=== PATIENT | female | born 1975 ===

== ENCOUNTER 2016-09-19 16:59 | Inpatient (IN) | payer OTHER ==
[2016-09-19] MEDS ORDERED: Sodium Chloride 0.9% 1,000 ML IV ONE (17:57)
[2016-09-19 18:12] LABS: BASO % 0.4 % (0.0-2.0); EOS # 0.1 K/uL (0.0-0.7); EOS % 0.7 % (0.0-4.0); HEMATOCRIT 42.7 % (34.0-47.0); LYMPH # 1.7 K/uL (1.0-4.3); LYMPH % 17.2 % (20.0-40.0); MEAN CELL VOLUME 91.8 fL (81.0-99.0); MEAN CORPUSCULAR HEMOGLOBIN 30.4 pg (27.0-31.0); MEAN CORPUSCULAR HGB CONC 33.1 g/dL (33.0-37.0); MEAN PLATELET VOLUME 8.4 fL (7.2-11.7); MONO # 0.8 K/uL (0.0-0.8); MONO % 8.3 % (0.0-10.0); NRBC % 0.1 % (0.0-2.0); RED CELL DISTRIBUTION WIDTH 12.5 % (11.5-14.5); WHITE BLOOD COUNT 9.7 K/uL (4.8-10.8)
[2016-09-19 18:15] LABS: CHLORIDE 99 mmol/L (98-107); POTASSIUM 3.9 mmol/L (3.6-5.2); SODIUM 135 mmol/L (132-148)
[2016-09-19 18:17] LABS: ALB/GLOB RATIO 1.2 (1.0-2.1); ALKALINE PHOSPHATASE 71 U/L (38-126); AST/SGOT 36 U/L (14-36); BILIRUBIN,TOTAL 1.2 mg/dL (0.2-1.3); CARBON DIOXIDE 26 mmol/L (22-30); GFR AFRICAN-AMERICAN > 60; TOTAL PROTEIN 7.9 g/dL (6.3-8.3)
[2016-09-19 18:18] LABS: ALT/SGPT 48 U/L (9-52); BLOOD UREA NITROGEN 21 mg/dL (7-17); CALCIUM 9.4 mg/dl (8.6-10.4); GLUCOSE,RANDOM 93 mg/dL (65-105); MAGNESIUM 1.9 mg/dL (1.6-2.3)
[2016-09-19 18:25] LABS: INR 1.1
--- NOTE | 2016-09-19 18:28 | RAD ---
PROCEDURE: CHEST RADIOGRAPH, 1 VIEW HISTORY: SOB, [place] COMPARISON: None available. FINDINGS: LUNGS: Clear. PLEURA: No pneumothorax or pleural fluid seen. CARDIOVASCULAR: Normal. OSSEOUS STRUCTURES: No significant abnormalities. VISUALIZED UPPER ABDOMEN: Normal. OTHER FINDINGS: None. IMPRESSION: No active disease.
[2016-09-19 18:35] LABS: T4 > 24.9 ug/dL (5.5-11.0)
[2016-09-19 18:36] LABS: RBC URINE 4 /hpf (0-3); URINE BACTERIA MOD (<OCC); URINE BILIRUBIN NEGATIVE (NEGATIVE); URINE BLOOD TRACE (NEGATIVE); URINE COLOR Yellow (YELLOW); URINE GLUCOSE (UA) NORMAL (Normal); URINE KETONE NEGATIVE (NEGATIVE); URINE LEUKOCYTE ESTERASE 2+ Leu/uL (Negative); URINE PROTEIN NEGATIVE (NEGATIVE); URINE UROBILINOGEN NORMAL mg/dL (0.2-1.0); WBC URINE 15 /hpf (0-5)
[2016-09-19 18:48] LABS: THYROID STIMULATING HORMONE < 0.02 mIU/L (0.46-4.68)
[2016-09-19] MEDS ORDERED: Sodium Chloride 0.9% 1,000 ML ONE (18:48)
[2016-09-19] MEDS ORDERED: Propranolol 1 mg/mL Inj IVP STA (18:57)
[2016-09-19] MEDS ORDERED: Propranolol 1 mg/mL Inj ONE (19:33)
--- NOTE | 2016-09-19 20:30 | C.PDOC ---
Time Seen by Provider: 09/19/16 17:35 Chief Complaint (Nursing): Palpitations History Per: Patient Onset/Duration Of Symptoms: Days (3) Current Symptoms Are (Timing): Still Present Associated Symptoms: Dyspnea Quality Of Symptoms: Rapid Heart Rate Severity: Moderate Exacerbating Factor(s): Pos: None Additional History Per: Prior Records Past Medical History Reviewed: Historical Data, Nursing Documentation, Vital Signs Vital Signs: Last Vital Signs Temp 97.9 F 09/19/16 19:00 Pulse 116 H 09/19/16 20:23 Resp 22 09/19/16 20:23 BP 125/74 09/19/16 20:23 Pulse Ox 96 09/19/16 20:23 - Medical History PMH: No Chronic Diseases Surgical History: No Surg Hx Family History: States: Unknown Family Hx - Social History Hx Tobacco Use: No Hx Alcohol Use: No Hx Substance Use: No Review Of Systems Except As Marked, All Systems Reviewed And Found Negative. Constitutional: Positive for: Malaise. Negative for: Fever Cardiovascular: Positive for: Palpitations. Negative for: Chest Pain Respiratory: Positive for: Shortness of Breath. Negative for: Cough, Hemoptysis Gastrointestinal: Negative for: Vomiting, Abdominal Pain, Diarrhea Genitourinary: Negative for: Dysuria Musculoskeletal: Negative for: Neck Pain, Back Pain, Leg Pain Skin: Negative for: Rash Neurological: Negative for: Weakness, Numbness, Seizures, Altered Mental Status Physical Exam - Physical Exam Appears: Non-toxic, No Acute Distress Skin: Normal Color, Warm, Dry, No Rash Head: Atraumatic, Normacephalic Eye(s): bilateral: PERRL, EOMI Neck: Normal ROM, Supple Cardiovascular: Rhythm Regular (tachycardia) Respiratory: Normal Breath Sounds, No Accessory Muscle Use Gastrointestinal/Abdominal: Soft, No Tenderness Back: No CVA Tenderness Extremity: Normal ROM, No Calf Tenderness Neurological/Psych: Oriented x3, Normal Motor, Normal Sensation ED Course And Treatment - Laboratory Results Result Diagrams: 09/19/16 18:04 09/19/16 18:04 Lab Interpretation: Abnormal Interpretation Of Abnormal: Elevated thyroid hormone levels with low TSH level. Urine POC: Negative ECG: Interpreted By Me, Viewed By Me ECG Rhythm: Sinus Tachycardia, Nonspecific Changes ECG Interpretation: Abnormal Rate From EC O2 Sat by Pulse Oximetry: 96 Pulse Ox Interpretation: Normal - Radiology CXR: Viewed By Me, Read By Radiologist CXR Interpretation: Yes: No Acute Disease - Physician Consult Information Physician Contacted: Mauricio Pugh (ICU) Outcome Of Conversation: She states that pt can be safely admitted to telemetry floor. Progress - Interventions Interventions:: Observation, Intravenous fluid, Oxygen - Medications Administered Oral: Other (Methimazole) Intravenous: Other (Propranolol) - Data Reviewed Data Reviewed: Lab, Diagnostic imaging, EKG, Old records - Patient Status Patient status: Partially improved - Critical Care Citical Care: Excluding Proc Time Critical Care Time: 45 minutes - Continuity of Care Discussed patient case with:: Patient, Family-HIPPA compliant, ED Nurse, On- call PMD-pt unassigned Discussed pt. case with care consultant/specialty: Pulmonary/Crit. Care - Patient Plan Patient Plan: Admission, Telemetry Disposition Discussed With : Kevan Nichols Comment: He accepted pt on hospitalist service. Doctor Will See Patient In The: Hospital Counseled Patient/Family Regarding: Studies Performed, Diagnosis - Disposition Disposition: HOSPITALIZED Disposition Time: 20:33 Condition: SERIOUS - Clinical Impression Clinical Impression: Thyrotoxicosis
--- NOTE | 2016-09-19 20:44 | CP.PCM.HP ---
<Fred Galindo - Last Filed: 09/19/16 23:54> History of Present Illness - History of Present Illness History of Present Illness: CC: "SOB, fast heart beat, shaking" 41 F with no significant PMH presents to [facility] ED with complaint of SOB, fast heart beat, and shaking. Patient stated that this has intermittently has been going on for 2 weeks. Monday, while she was at work, she began to notice significant shaking in her hand when trying to write. She went home from work and tried to rest over the weekend. Her symptoms had gotten progressively worse and earlier today decided to go to an urgent care center. They instructed her to come to the ED. Patient has also had associated headache, nausea, and one episode of vomiting. She states that she has nebver experiencd these symptoms before 2 weeks ago. She simply thought these symptoms was related to stress in her life. Patient rated headache as 4/10 in severity. She described it as constant and aching located in the occipital region of her head without radiation. She tried taking Alieve but the headache persisted. She denies any exacerbating or alleviating factors. Patient reported that her mother had an isolated episode of hyperthyroidism while her Grandmother had a history of Graves' disease. Admits dizziness/lightheadedness, blurred vision, SOB, palpitations, tremors, fatigue, n/v. Denies fever/chills, cp, abd pain, diarrhea , constipation, urinary symptoms, incontinence, numbness/tingling, weakness. 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 absent: Chills, Fever, Weakness - EENT Eyes: Blurred Vision. absent: Loss of Peripheral Vision, Pain Ears: Dizziness. absent: Ear Pain Nose/Mouth/Throat: absent: Nasal Discharge, Nose Pain, Change in Voice, Sore Throat, Neck Mass - Breasts Breasts: absent: Mass, Pain, Swelling - Cardiovascular Cardiovascular: Diaphoresis, Dyspnea, Lightheadedness, Palpitations. absent: Chest Pain, Chest Pain at Rest, Chest Pain with Activity, Irregular Heart Rhythm , Syncope - Respiratory Respiratory: absent: Cough, Dyspnea, Hemoptysis - Gastrointestinal Gastrointestinal: Nausea. absent: Abdominal Pain, Diarrhea, Vomiting - Genitourinary Genitourinary: absent: Change in Urinary Stream, Difficulty Urinating, Dysuria, Urinary Incontinence - Musculoskeletal Musculoskeletal: absent: Numbness, Stiffness, Tingling - Integumentary Integumentary: absent: Lesions, New Lesions, Skin Pain, Skin Ulcer, Sores - Neurological Neurological: Dizziness, Headaches, Tremor. absent: Confusion, Numbness, Syncope, Tingling, Vertigo, Weakness - Psychiatric Psychiatric: Anxiety. absent: Depression, Homicidal Ideation, Suicidal Ideation - Endocrine Endocrine: Fatigue, Palpitations. absent: Excessive Sweating, Flushing, Heat Intolorance, Polydipsia, Polyphagia, Polyuria - Hematologic/Lymphatic Hematologic: absent: Easy Bleeding, Easy Bruising, Lymphadenopathy Past Patient History - Past Social History Smoking Status: Never Smoked - PSYCHIATRIC Hx Substance Use: No Meds Allergies/Adverse Reactions: Allergies Allergy/AdvReac Type Severity Reaction Status Date / Time No Known Allergies Allergy Unverified 09/19/16 17:26 Physical Exam - Constitutional Appears: No Acute Distress - Head Exam Head Exam: ATRAUMATIC, NORMOCEPHALIC - Eye Exam Eye Exam: EOMI, Normal appearance Pupil Exam: PERRL - ENT Exam ENT Exam: Mucous Membranes Moist - Neck Exam Neck exam: Positive for: Thyromegaly (TTP) - Respiratory Exam Respiratory Exam: Clear to Auscultation Bilateral, NORMAL BREATHING PATTERN - Cardiovascular Exam Cardiovascular Exam: Tachycardia, REGULAR RHYTHM, +S1, +S2 - GI/Abdominal Exam GI & Abdominal Exam: Normal Bowel Sounds, Soft. absent: Distended, Firm, Guarding, Rebound, Rigid, Tenderness - Extremities Exam Extremities exam: Positive for: normal capillary refill, pedal edema, pedal pulses present - Back Exam Back exam: absent: CVA tenderness (L), CVA tenderness (R) - Neurological Exam Neurological exam: Alert, CN II-XII Intact, Oriented x3 - Psychiatric Exam Psychiatric exam: Anxious - Skin Skin Exam: Dry, Intact, Normal Color, Warm Results - Vital Signs Recent Vital Signs: Last Vital Signs Temp 97.9 F 09/19/16 19:00 Pulse 116 H 09/19/16 20:23 Resp 22 09/19/16 20:23 BP 125/74 09/19/16 20:23 Pulse Ox 96 09/19/16 20:33 - Labs Result Diagrams: 09/19/16 18:04 09/19/16 18:04 Labs: Laboratory Results - last 24 hr 09/19/16 09/19/16 09/19/16 18:04 18:04 18:04 WBC 9.7 RBC 4.65 Hgb 14.1 Hct 42.7 MCV 91.8 MCH 30.4 MCHC 33.1 RDW 12.5 Plt Count 310 MPV 8.4 Neut % (Auto) 73.4 Lymph % (Auto) 17.2 L [place] % (Auto) 8.3 Eos % (Auto) 0.7 Baso % (Auto) 0.4 Neut # 7.1 H Lymph # 1.7 [place] # 0.8 Eos # 0.1 Baso # 0.0 PT 12.6 H INR 1.1 APTT 31 D-Dimer, Quantitative 270 H Sodium 135 Potassium 3.9 Chloride 99 Carbon Dioxide 26 Anion Gap 14 BUN 21 H Creatinine 0.5 L Est GFR ( Amer) > 60 Est GFR (Non-Af Amer) > 60 Random Glucose 93 Calcium 9.4 Magnesium 1.9 Total Bilirubin 1.2 AST 36 ALT 48 Alkaline Phosphatase 71 Troponin I < 0.0120 NT-Pro-B Natriuret Pep 16.8 Total Protein 7.9 Albumin 4.3 Globulin 3.6 Albumin/Globulin Ratio 1.2 Thyroxine (T4) > 24.9 H Total T3 11.0 H TSH 3rd Generation < 0.02 L Urine Color Urine Clarity Urine pH Ur Specific [place] Urine Protein Urine Glucose (UA) Urine Ketones Urine Blood Urine Nitrate Urine Bilirubin Urine Urobilinogen Ur Leukocyte Esterase Urine WBC (Auto) Urine RBC (Auto) Ur Squamous Epith Cells Urine Bacteria Urine HCG, Qual Urine Opiates Screen Urine Methadone Screen Ur Barbiturates Screen Ur Phencyclidine Scrn Ur Amphetamines Screen U Benzodiazepines Scrn U Oth Cocaine Metabols U Cannabinoids Screen 09/19/16 09/19/16 18:24 18:24 WBC RBC Hgb Hct MCV MCH MCHC RDW Plt Count MPV Neut % (Auto) Lymph % (Auto) [place] % (Auto) Eos % (Auto) Baso % (Auto) Neut # Lymph # [place] # Eos # Baso # PT INR APTT D-Dimer, Quantitative Sodium Potassium Chloride Carbon Dioxide Anion Gap BUN Creatinine Est GFR ( Amer) Est GFR (Non-Af Amer) Random Glucose Calcium Magnesium Total Bilirubin AST ALT Alkaline Phosphatase Troponin I NT-Pro-B Natriuret Pep Total Protein Albumin Globulin Albumin/Globulin Ratio Thyroxine (T4) Total T3 TSH 3rd Generation Urine Color Yellow Urine Clarity Hazy Urine pH 6.0 Ur Specific [place] 1.019 Urine Protein Negative Urine Glucose (UA) Normal Urine Ketones Negative Urine Blood Trace H Urine Nitrate Negative Urine Bilirubin Negative Urine Urobilinogen Normal Ur Leukocyte Esterase 2+ H Urine WBC (Auto) 15 H Urine RBC (Auto) 4 H Ur Squamous Epith Cells 12 H Urine Bacteria Mod H Urine HCG, Qual Negative Urine Opiates Screen Negative Urine Methadone Screen Negative Ur Barbiturates Screen Negative Ur Phencyclidine Scrn Negative Ur Amphetamines Screen Negative U Benzodiazepines Scrn Negative U Oth Cocaine Metabols Negative U Cannabinoids Screen Negative Assessment & Plan - Assessment and Plan (Free Text) Plan: 1. Hyperthyroidism telemetry Tachycardic 125 bpm T3 11.0 T4 > 24.9 TSH < 0.02 Thyroid US Thyroid Uptake Scan Thyroid HARRIS/TPO Atenolol 50 mg PO daily Methimazole 20 mg PO BID O2 2LNC PRN 2. Prophylactic Measures Lovenox 40 mg SC daily Protonix 40 mg pO daily Zofran 4 mg IVP Q6h PRN <Kevan Nichols P - Last Filed: 09/25/16 19:41> Results - Vital Signs Recent Vital Signs: Last Vital Signs Temp 98.5 F 09/21/16 23:10 Pulse 101 H 09/21/16 23:40 Resp 20 09/21/16 23:10 BP 98/60 L 09/21/16 23:10 Pulse Ox 98 09/21/16 23:10 - Labs Result Diagrams: 09/22/16 04:00 09/21/16 07:32 Attending/Attestation - Attestation I have personally seen and examined this patient.: Yes I have fully participated in the care of the patient.: Yes I have reviewed all pertinent clinical information: Yes
[2016-09-20 08:51] LABS: BASO % 0.5 % (0.0-2.0); EOS # 0.2 K/uL (0.0-0.7); EOS % 3.8 % (0.0-4.0); HEMATOCRIT 40.3 % (34.0-47.0); LYMPH # 1.7 K/uL (1.0-4.3); LYMPH % 28.8 % (20.0-40.0); MEAN CELL VOLUME 91.2 fL (81.0-99.0); MEAN CORPUSCULAR HEMOGLOBIN 30.3 pg (27.0-31.0); MEAN CORPUSCULAR HGB CONC 33.3 g/dL (33.0-37.0); MEAN PLATELET VOLUME 8.6 fL (7.2-11.7); MONO # 0.8 K/uL (0.0-0.8); MONO % 13.1 % (0.0-10.0); RED CELL DISTRIBUTION WIDTH 12.2 % (11.5-14.5); WHITE BLOOD COUNT 5.9 K/uL (4.8-10.8)
[2016-09-20 09:05] LABS: INR 1.1
[2016-09-20 09:11] LABS: CHLORIDE 103 mmol/L (98-107)
[2016-09-20 09:12] LABS: SODIUM 136 mmol/L (132-148)
[2016-09-20 09:14] LABS: CHOLESTEROL 127 mg/dL (0-199)
[2016-09-20 09:15] LABS: ALB/GLOB RATIO 1.1 (1.0-2.1); ALKALINE PHOSPHATASE 64 U/L (38-126); ALT/SGPT 51 U/L (9-52); AST/SGOT 35 U/L (14-36); BILIRUBIN,TOTAL 1.6 mg/dL (0.2-1.3); BLOOD UREA NITROGEN 18 mg/dL (7-17); CARBON DIOXIDE 25 mmol/L (22-30); GFR AFRICAN-AMERICAN > 60; GLUCOSE,RANDOM 85 mg/dL (65-105); TOTAL PROTEIN 6.9 g/dL (6.3-8.3)
[2016-09-20 09:16] LABS: CALCIUM 9.2 mg/dl (8.6-10.4)
[2016-09-20 09:21] LABS: T4 > 24.9 ug/dL (5.5-11.0)
[2016-09-20 09:34] LABS: THYROID STIMULATING HORMONE < 0.02 mIU/L (0.46-4.68)
[2016-09-20] MEDS: Enoxaparin 40 mg Syringe SC SCH (09:39)
[2016-09-20] MEDS: Pantoprazole 40 mg EC Tab PO SCH (09:39)
--- NOTE | 2016-09-20 10:35 | US ---
Thyroid ultrasound History: Hyperthyroidism. Comparison: None available. Technique: Real-time sonography was performed through the thyroid. Findings: Right lobe: 6.1 x 2.3 x 2.4 centimeters. Bulky heterogeneous echotexture. Increased flow. Thyroid isthmus measures 2 millimeters. Heterogeneous echotexture. Increased flow. Left lobe: 6.1 x 2.0 x 2.3 centimeters. Bulky heterogeneous echotexture. Increased flow. Impression: Bulky heterogeneous echotexture of the thyroid gland with associated increased vascular flow. Limited study for nodule visualization given the prominent bulky heterogeneous appearance of the thyroid gland.
--- NOTE | 2016-09-20 14:25 | CP.PCM.PN ---
<Jah Sullivan - Last Filed: 09/20/16 14:25> Subjective - Date & Time of Evaluation Date of Evaluation: 09/20/16 Time of Evaluation: 14:25 - Subjective Subjective: Med progress note. Attending: Dr. Montelongo Pt seen and examined at bedside. No acute distress. Tachycardia coming down. Pt feeling better but still feeling some sob. Denies chest pain. Denies fevers, chills, echo pending. Objective - Vital Signs/Intake and Output Vital Signs (last 24 hours): Temp Pulse Resp BP Pulse Ox 98.4 F 117 H 20 112/74 97 09/19/16 23:50 09/20/16 04:22 09/19/16 23:50 09/19/16 23:50 09/19/16 23:50 Intake and Output: 09/20/16 09/20/16 06:59 18:59 Intake Total 120 Balance 120 - Medications Medications: Current Medications Acetaminophen (Tylenol 325mg Tab) 650 mg PO Q6 PRN PRN Reason: Headache Last Admin: 09/20/16 12:33 Dose: 650 mg Atenolol (Tenormin) 50 mg PO DAILY [facility] Last Admin: 09/20/16 09:39 Dose: 50 mg Enoxaparin Sodium (Lovenox) 40 mg SC DAILY [facility] Last Admin: 09/20/16 09:39 Dose: 40 mg Methimazole (Tapazole) 20 mg PO BID [facility] Last Admin: 09/20/16 09:41 Dose: 20 mg Ondansetron HCl (Zofran Inj) 4 mg IVP Q6 PRN PRN Reason: Nausea/Vomiting Pantoprazole Sodium (Protonix Ec Tab) 40 mg PO DAILY [facility] Last Admin: 09/20/16 09:39 Dose: 40 mg Pneumococcal Polyvalent Vaccine (Pneumovax 23 Vaccine) 0.5 ml IM .ONCE ONE Stop: 09/23/16 10:01 - Labs Labs: 09/20/16 08:42 09/20/16 08:42 PT 12.9 SECONDS (9.7-12.2) H 09/20/16 08:42 INR 1.1 09/20/16 08:42 APTT 28 SECONDS (21-34) 09/20/16 08:42 - Constitutional Appears: Non-toxic, No Acute Distress - Head Exam Head Exam: ATRAUMATIC, NORMOCEPHALIC - Respiratory Exam Respiratory Exam: NORMAL BREATHING PATTERN. absent: Respiratory Distress - Cardiovascular Exam Cardiovascular Exam: Tachycardia, +S1, +S2 - GI/Abdominal Exam GI & Abdominal Exam: Soft, Normal Bowel Sounds. absent: Tenderness - Extremities Exam Extremities Exam: Full ROM, Normal Inspection - Back Exam Back Exam: NORMAL INSPECTION - Neurological Exam Neurological Exam: Alert, Awake, Oriented x3 - Psychiatric Exam Psychiatric exam: Normal Affect, Normal Mood - Skin Skin Exam: Dry, Intact, Normal Color, Warm Assessment and Plan - Assessment and Plan (Free Text) Assessment: This is a 41 yo female with no past medical hx but strong family hx of hyperthyroidism presenting with 1. Hyperthyroidism continue telemetry T3 11.0 T4 > 24.9 TSH < 0.02 Thyroid US shows bulky heterogeneous echotexture with increased vasular flow Thyroid Uptake Scan pending Thyroid HARRIS/TPO pending Atenolol 50 mg PO daily Methimazole 20 mg PO BID O2 2LNC PRN 2. Prophylactic Measures Lovenox 40 mg SC daily Protonix 40 mg pO daily Zofran 4 mg IVP Q6h PRN discussed with Dr. Montelongo <Chang Montelongo - Last Filed: 10/24/16 16:50> Objective - Vital Signs/Intake and Output Vital Signs (last 24 hours): Temp Pulse Resp BP Pulse Ox 98.5 F 101 H 20 98/60 L 98 09/21/16 23:10 09/21/16 23:40 09/21/16 23:10 09/21/16 23:10 09/21/16 23:10 - Labs Labs: 09/22/16 04:00 09/21/16 07:32 PT 12.9 SECONDS (9.7-12.2) H 09/20/16 08:42 INR 1.1 09/20/16 08:42 APTT 28 SECONDS (21-34) 09/20/16 08:42 Attending/Attestation - Attestation I have personally seen and examined this patient.: Yes I have fully participated in the care of the patient.: Yes I have reviewed all pertinent clinical information, including history, physical exam and plan: Yes Notes (Text): Patient Seen and examined with the resident. Agree with the resident's evaluation, assessment and plan. 1. Hyperthyroidism continue telemetry T3 11.0 T4 > 24.9 TSH < 0.02 Thyroid US shows bulky heterogeneous echotexture with increased vasular flow Thyroid Uptake Scan pending Thyroid HARRIS/TPO pending Atenolol 50 mg PO daily Methimazole 20 mg PO BID O2 2LNC PRN
--- NOTE | 2016-09-20 18:28 | CARD ---
APPROVED REPORT EKG Measurement Heart [id number] <Conclusion> Sinus tachycardia Possible Left atrial enlargement Borderline ECG
[2016-09-21 07:48] LABS: BASO % 0.4 % (0.0-2.0); EOS # 0.2 K/uL (0.0-0.7); EOS % 3.4 % (0.0-4.0); HEMATOCRIT 39.9 % (34.0-47.0); LYMPH # 1.6 K/uL (1.0-4.3); LYMPH % 26.7 % (20.0-40.0); MEAN CELL VOLUME 92.1 fL (81.0-99.0); MEAN CORPUSCULAR HEMOGLOBIN 30.3 pg (27.0-31.0); MEAN CORPUSCULAR HGB CONC 32.9 g/dL (33.0-37.0); MEAN PLATELET VOLUME 8.5 fL (7.2-11.7); MONO # 0.9 K/uL (0.0-0.8); MONO % 14.1 % (0.0-10.0); RED CELL DISTRIBUTION WIDTH 12.3 % (11.5-14.5); WHITE BLOOD COUNT 6.1 K/uL (4.8-10.8)
--- NOTE | 2016-09-21 07:49 | CON ---
DATE: 09/20/2016 LOCATION: Room 660. HISTORY OF PRESENT ILLNESS: This is a 41-year-old female with no apparent medical history presenting here with sudden onset of precordial pressures and supervening palpitations and associated dizziness and lightheadedness prompting this ER consult and subsequent admission. She also admits to increasi ng tremulousness of her hands and worsening generalized anxiety and marked insomnia and also at this time. PAST MEDICAL HISTORY: Essentially unremarkable. FAMILY HISTORY: Her mother has prior history of hyperthyroidism and also her maternal grandmother christopher d Graves' disease and was treated for hyperthyroidism. SOCIAL HISTORY: The patient has supportive family. No known substance use. 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 No known substance use. REVIEW OF SYSTEMS: As mentioned above, admits to generalized body weakness with easy fatigability an d tiredness and suboptimal energy level with supervening dizziness and lightheadedness, worse on the day of admission. Also, admits to precordial pressure and supervening marked palpitations with occas ional bouts of shortness of breath, especially on exertion. Her oral intake has improved and admits to marked hyperphagia with episodic hyperdefecation and vague upper abdominal pains. Also admits to recent weight loss despite improved oral intake. She also admits to tremors in both upper and lower extremities, especially with both hands. PHYSICAL EXAMINATION: GENERAL: This is an average built female in no apparent distress. VITAL SIGNS: Blood pressure 140/80, pulse of 100 beats per minute and regular, temperature 98, respi rations 20. Height 4 feet 11. Weight is 138 pounds. HEENT: Head normocephalic. Eyes anicteric with pink conjunctivae. Fundoscopy not possible at this time. NECK: Supple. Thyroid gland shows diffuse thyromegaly which is nontender and firm and with no overt cervical adenopathy noted. ____ CARDIOPULMONARY: There is an adynamic precordium. S1, S2 is rapid and regular. LUNGS: Show scattered rhonchi. ABDOMEN: Flat, soft with positive bowel sounds. EXTREMITIES: No peripheral edema. Pulses are +2 bilaterally. LABORATORY DATA: Her hemoglobin is 14, hematocrit of 42. Chemistry: BUN of 21, sodium 135, potassi um 3.9, chloride 99, CO2 26, glucose 93 and creatinine 0.5. Her thyroid study showed a T4 of greater than 24.9 with a free T4 of 6.05 and a TSH of less than 0.02. ASSESSMENT: This is a 41-year-old female with overt thyrotoxicosis presenting here with marked hyper thyroidism both historically, clinically, and biochemically, most likely related to underlying autoim mune thyroiditis, i.e., Graves' disease. She also has an underlying diffuse toxic goiter with no ove rt neck compression symptoms. She also has overt hyperadrenergic and constitutional manifestations o f marked hyperthyroidism as mentioned above. PLAN OF MANAGEMENT: Will modify her current medical therapy to a much higher dose of Tapazole given as 20 mg p.o. t.i.d. after meals to start today. Detailed orders have been given as ordered. That i s the best therapeutic option at this time to rapidly control and improve her thyroid studies accordi edyly. She may opt for the future to have radioactive iodine ablation and/or surgical therapy as corey cated. Will follow and advise accordingly. Will hold off on the thyroid ultrasound at this time and even a thyroid scan using radioactive iodine 123 as noted. Will follow and advise accordingly. Genesis Junior MD cc: [id number] TT: 09/20/2016 16:04:59 Confirmation # [id number] Dictation # [id number] alex
[2016-09-21 08:20] LABS: CHLORIDE 105 mmol/L (98-107); SODIUM 138 mmol/L (132-148)
[2016-09-21 08:21] LABS: POTASSIUM 3.9 mmol/L (3.6-5.2)
[2016-09-21 08:22] LABS: GFR AFRICAN-AMERICAN > 60
[2016-09-21 08:23] LABS: ALB/GLOB RATIO 1.1 (1.0-2.1); ALKALINE PHOSPHATASE 65 U/L (38-126); ALT/SGPT 42 U/L (9-52); AST/SGOT 33 U/L (14-36); BILIRUBIN,TOTAL 1.1 mg/dL (0.2-1.3); BLOOD UREA NITROGEN 17 mg/dL (7-17); CALCIUM 8.7 mg/dl (8.6-10.4); CARBON DIOXIDE 26 mmol/L (22-30); GLUCOSE,RANDOM 99 mg/dL (65-105); MAGNESIUM 1.9 mg/dL (1.6-2.3); TOTAL PROTEIN 6.5 g/dL (6.3-8.3)
[2016-09-21] MEDS: Pantoprazole 40 mg EC Tab PO SCH (10:58)
[2016-09-21] MEDS: Enoxaparin 40 mg Syringe SC SCH (10:58)
--- NOTE | 2016-09-21 15:14 | CP.PCM.PN ---
<Jah Sullivan - Last Filed: 09/21/16 15:14> Subjective - Date & Time of Evaluation Date of Evaluation: 09/21/16 Time of Evaluation: 15:15 - Subjective Subjective: Med progress note. Attending: Dr. Montelongo Pt seen and examined at bedside. Pt feeling much better, less sob and less heart racing. Stil tachy in morning, 100 at time of eval. Denies cp, fevers, chills, vomiting, diarrhea. Will add 12.5 atenolol. Echo pending. Objective - Vital Signs/Intake and Output Vital Signs (last 24 hours): Temp Pulse Resp BP Pulse Ox 98.5 F 120 H 18 113/71 98 09/21/16 07:20 09/21/16 08:52 09/21/16 07:20 09/21/16 07:20 09/21/16 07:20 Intake and Output: 09/21/16 09/21/16 06:59 18:59 Intake Total 240 Balance 240 - Medications Medications: Current Medications Acetaminophen (Tylenol 325mg Tab) 650 mg PO Q6 PRN PRN Reason: Headache Last Admin: 09/21/16 08:06 Dose: 650 mg Atenolol (Tenormin) 50 mg PO DAILY [facility] Last Admin: 09/21/16 10:58 Dose: 50 mg Atenolol (Tenormin) 12.5 mg PO DAILY [facility] Last Admin: 09/21/16 14:48 Dose: 12.5 mg Cholestyramine Resin (Prevalite) 4 gm PO BID [facility] Docusate Sodium (Colace) 100 mg PO DAILY [facility] Last Admin: 09/21/16 14:48 Dose: 100 mg Enoxaparin Sodium (Lovenox) 40 mg SC DAILY [facility] Last Admin: 09/21/16 10:58 Dose: 40 mg Methimazole (Tapazole) 20 mg PO BID [facility] Last Admin: 09/21/16 10:58 Dose: 20 mg Ondansetron HCl (Zofran Inj) 4 mg IVP Q6 PRN PRN Reason: Nausea/Vomiting Pantoprazole Sodium (Protonix Ec Tab) 40 mg PO DAILY [facility] Last Admin: 09/21/16 10:58 Dose: 40 mg Pneumococcal Polyvalent Vaccine (Pneumovax 23 Vaccine) 0.5 ml IM .ONCE ONE Stop: 09/23/16 10:01 - Labs Labs: 09/21/16 07:32 09/21/16 07:32 PT 12.9 SECONDS (9.7-12.2) H 09/20/16 08:42 INR 1.1 09/20/16 08:42 APTT 28 SECONDS (21-34) 09/20/16 08:42 - Constitutional Appears: Non-toxic, No Acute Distress - Head Exam Head Exam: ATRAUMATIC, NORMAL INSPECTION, NORMOCEPHALIC - Eye Exam Eye Exam: EOMI - ENT Exam ENT Exam: Mucous Membranes Moist - Respiratory Exam Respiratory Exam: NORMAL BREATHING PATTERN. absent: Respiratory Distress - Cardiovascular Exam Cardiovascular Exam: Tachycardia, +S1, +S2 - GI/Abdominal Exam GI & Abdominal Exam: Soft, Normal Bowel Sounds. absent: Tenderness - Extremities Exam Extremities Exam: Full ROM, Normal Inspection - Neurological Exam Neurological Exam: Alert, Awake, Oriented x3 - Psychiatric Exam Psychiatric exam: Normal Affect, Normal Mood - Skin Skin Exam: Dry, Intact, Normal Color, Warm Assessment and Plan - Assessment and Plan (Free Text) Assessment: This is a 41 yo female with no past medical hx but strong family hx of hyperthyroidism presenting with 1. Hyperthyroidism continue telemetry T3 11.0 T4 > 24.9 TSH < 0.02 Thyroid US shows bulky heterogeneous echotexture with increased vasular flow Thyroid Uptake Scan pending; may be done at later date Thyroid HARRIS/TPO pending Atenolol 50 mg PO daily>> will add 12.5 in addn Methimazole 20 mg PO BID O2 2LNC PRN will add cholestyramine bid echo pending will add colace 2. Prophylactic Measures Lovenox 40 mg SC daily Protonix 40 mg pO daily Zofran 4 mg IVP Q6h PRN discussed with Dr. Montelongo <Chang Montelongo - Last Filed: 10/25/16 15:30> Objective - Vital Signs/Intake and Output Vital Signs (last 24 hours): Temp Pulse Resp BP Pulse Ox 98.5 F 101 H 20 98/60 L 98 09/21/16 23:10 09/21/16 23:40 09/21/16 23:10 09/21/16 23:10 09/21/16 23:10 - Labs Labs: 09/22/16 04:00 09/21/16 07:32 PT 12.9 SECONDS (9.7-12.2) H 09/20/16 08:42 INR 1.1 09/20/16 08:42 APTT 28 SECONDS (21-34) 09/20/16 08:42 Attending/Attestation - Attestation I have personally seen and examined this patient.: Yes I have fully participated in the care of the patient.: Yes I have reviewed all pertinent clinical information, including history, physical exam and plan: Yes Notes (Text): This is a 41 yo female with no past medical hx but strong family hx of hyperthyroidism presenting with Hyperthyroidism acute exacerbation new diagnosis currently uncontrolled
[2016-09-21 15:57] VITALS: RESP 20
--- NOTE | 2016-09-21 16:59 | PN ---
DATE: 09/21/2016 This is a 41-year-old female with overt thyrotoxicosis presenting here with hyperadrenergic and const itutional manifestations indicative of marked hyperthyroidism both historically, clinically, and bioc hemically as noted thereof. Her latest thyroid study showed a T4 of over 24.9 and a free T4 of 6.05 and a TSH of less than 0.02. Her latest chemistries showed a BUN of 17, sodium 138, potassium 3.9, c hloride 105, CO2 26, glucose 99, and creatinine 0.5. So, at this time, we will continue the same hig h dose medical therapy with Tapazole given as 20 mg p.o. b.i.d. after meals as given. We will obtain serial thyroid studies and adjust her dose regimen accordingly. The most definitive medical managem ent and therapeutic option for this patient would actually be radioactive iodine ablation therapy. H owever, with her financial constraints and lack of medical insurance, this option is a future therape utic modality, but for now, we will continue the medical therapy as given. We are awaiting the thyro id antibodies, which will confirm and/or negate the presence of underlying thyroid autoimmunity. We will follow. Genesis Junior MD cc: [id number] TT: 09/21/2016 16:58:15 Confirmation # [id number] Dictation # [id number]
[2016-09-21] MEDS ORDERED: Cholestyramine 4 gm/5.5 gm UD Packet PO SCH (18:00)
--- NOTE | 2016-09-22 00:05 | CARD ---
APPROVED REPORT EXAM: Two-dimensional and M-mode echocardiogram with Doppler and color Doppler. Other Information Quality : GoodRhythm : INDICATION Dizziness and Vertigo Dyspnea M-Mode DIMENSIONS RVDd2.07 (2.1-3.2cm)Left Atrium (MM)2.79 (2.5-4.0cm) IVSd0.97 (0.7-1.1cm)Aortic Root2.43 (2.2-3.7cm) LVDd4.31 (4.0-5.6cm)Aortic Cusp Exc.1.58 (1.5-2.0cm) PWd0.97 (0.7-1.1cm)FS (%) 35 % LVDs2.82 (2.0-3.8cm)LVEF (%)64 (>50%) Aortic Valve AoV Peak Ricafxns321.4cm/Yamila Peak GR.8mmHg Mitral Valve MV E Szuqkyyk67.3cm/sMV A Emjtsjpq07.9cm/sE/A ratio1.1 TDI E/Lateral E'0.0E/Medial E'0.0 Tricuspid Valve TR Peak Grdthjmq924sh/sTR Peak Gr.[id number] LEFT VENTRICLE The left ventricle is normal size. There is normal left ventricular wall thickness. Left ventricle systolic function is normal. The Ejection Fraction is 60-65%. There is normal LV segmental wall motion. The left ventricular diastolic function is normal. There is no ventricular septal defect visualized. RIGHT VENTRICLE The right ventricle is normal size. The right ventricular systolic function is normal. ATRIA The left atrium size is normal. The right atrium size is normal. AORTIC VALVE The aortic valve is tri-cuspid. The aortic valve is normal in structure. No aortic regurgitation is present. There is no aortic valvular stenosis. MITRAL VALVE The mitral valve is normal in structure. There is no evidence of mitral valve prolapse. There is no mitral valve regurgitation noted. TRICUSPID VALVE The tricuspid valve is normal in structure. There is no tricuspid valve regurgitation noted. PULMONIC VALVE The pulmonic valve is not well visualized. There is no pulmonic valvular regurgitation. GREAT VESSELS The IVC is normal in size and collapses >50% with inspiration. PERICARDIAL EFFUSION There is no pericardial effusion. <Conclusion> Normal study
[2016-09-22 07:52] LABS: BASO % 0.5 % (0.0-2.0); EOS # 0.2 K/uL (0.0-0.7); EOS % 3.9 % (0.0-4.0); HEMATOCRIT 40.1 % (34.0-47.0); LYMPH # 1.9 K/uL (1.0-4.3); LYMPH % 30.9 % (20.0-40.0); MEAN CORPUSCULAR HGB CONC 32.6 g/dL (33.0-37.0); MEAN PLATELET VOLUME 8.7 fL (7.2-11.7); MONO # 0.9 K/uL (0.0-0.8); NRBC % 0.3 % (0.0-2.0); RED CELL DISTRIBUTION WIDTH 12.3 % (11.5-14.5); WHITE BLOOD COUNT 6.1 K/uL (4.8-10.8)
[2016-09-22 19:17] LABS: TSI 561 % baseline (<140)
--- NOTE | 2016-09-22 22:51 | PN ---
DATE: 09/22/2016 ROOM: 660 SUBJECTIVE: This is a 41-year-old female with overt hyperthyroidism related to underlying Graves' di sease, presenting here with marked thyrotoxicosis and is now being followed closely for metabolic man agement. Her latest thyroid study showed a T4 of 24.9 mcg/dL with a TSH of less than 0.02 and a free T4 of 6.05. Her thyroid stimulating immunoglobulin level is 561, confirming the presence of underly ing Graves' disease. So at this time, we will continue the same medical therapy as given and recomme nd Tapazole given as 20 mg p.o. b.i.d. after meals as ordered. Would also recommend a long acting be ta ariane to be given once a day as ordered. She will follow with her medical doctors for outpatien t thyroid management and followup. Genesis Junior MD cc: [id number] TT: 09/22/2016 22:49:50 Confirmation # [id number] Dictation # [id number] jn
[2016-09-23 00:42] VITALS: BP 98/60; PULSE 101; TEMP 98.5; O2SAT 98
[2016-09-23 07:10] LABS: URINE BILIRUBIN NEGATIVE (NEGATIVE); URINE BLOOD NEGATIVE (NEGATIVE); URINE COLOR YELLOW (YELLOW); URINE GLUCOSE (UA) Normal (Normal); URINE KETONE NEGATIVE (NEGATIVE)
[2016-09-23 07:11] LABS: RBC URINE 1 /hpf (0-3); URINE CALCIUM OXALATE CRYSTALS RARE /hpf (<OCC); URINE LEUKOCYTE ESTERASE 1+ Leu/uL (Negative); URINE PROTEIN NEGATIVE (NEGATIVE); URINE UROBILINOGEN Normal mg/dL (0.2-1.0); WBC URINE 2 /hpf (0-5)
--- NOTE | 2016-09-23 08:41 | CT ---
CT head without IV contrast History: Headaches Technique: Axial computed tomography images were obtained through the head/brain without intravenous contrast. This CT exam was performed using 1 or more of the falling dose reduction techniques: Automated exposure control, adjustment of the MAA and/or kV according to patient size, and/or use of iterative reconstruction technique. Radiation dose: Total exam DLP = 813.83 mGy-cm. Comparison: None available Findings: The ventricles, sulci, and cisterns appear within normal limits. No intracranial masses or hemorrhages are identified. The [place]-white matter differentiation appears intact. Please note that MRI with diffusion imaging is more sensitive in the detection of acute ischemic event. Mucosal thickening of the ethmoid air cells and left frontal sinus. Remainder of the visualized paranasal sinuses, mastoid air cells, and both orbits appear unremarkable. Opacification involving the right greater than left external auditory canals, likely cerumen. Impression: No acute intracranial pathology identified. Mucosal thickening of the ethmoid air cells and left frontal sinus. Correlate clinically for sinusitis.
[2016-09-23] MEDS ORDERED: Pneumococcal 23-Valent Vaccine IM ONE (10:00)
== END 2016-09-22 19:00 | disposition home or self-care (01) | DRG 301 ==
LOC: C.ER 16:59 → C.9E 20:33 → C.6T 21:15
PROVIDERS: ADMIT Internal Medicine; ATTEND Internal Medicine
DX: E05.00 Thyrotoxicosis with diffuse goiter without thyrotoxic crisis or storm (principal); E06.3 Autoimmune thyroiditis; F41.1 Generalized anxiety disorder